=== PATIENT | male | born 1940 | race African-American/Black ===

== ENCOUNTER 2022-02-24 08:45 | Emergency (ER) | payer OTHER, MEDICARE ==
[2022-02-24] MEDS ORDERED: Acetaminophen 500 MG TAB ONE (09:46)
[2022-02-24 10:30] LABS: #Eosinphils 0.2 10x3/uL (0.0-0.5); #Monocytes 0.7 10x3/uL (0.0-1.1); #Neutrophils 4.5 10x3/uL (1.5-8.4); %Basophils 0.3 % (0.0-2.0); %Eosinophils 2.9 % (0.0-6.0); %Lymphocytes 25.3 % (18.0-47.0); %Monocytes 9.5 % (0.0-10.0); %Neutrophils 61.7 % (40.0-75.0); Hemoglobin 12.1 g/dL (13.5-17.5); Mean Corpuscular HGB CONC 32.4 g/dL (32.0-36.0); Mean Corpuscular Hemoglobin 32.1 pg (27.0-33.0); Mean Corpuscular Volume 99.2 fl (81.2-95.1); Mean Platelet Volume 11.3 fl (7.4-10.4); Platelet Count 60 10x3/uL (150-450); RBC Distribution Width 15.5 % (11.5-14.5); Red Blood Cell (RBC) Count 3.77 10x6/uL (4.32-5.72); White Blood Cell (WBC) Count 7.2 10x3/uL (3.5-10.5)
[2022-02-24 10:31] LABS: ALT (SGPT) 9 U/L (8-55); AST (SGOT) 14 U/L (5-34); Albumin 3.7 g/dL (3.4-4.8); Alkaline Phosphatase 59 U/L (40-110); Anion Gap 17 mmol/L (10-20); BUN (Urea Nitrogen) 36 mg/dL (8.4-25.7); Bilirubin, Total 0.4 mg/dL (0.2-1.2); Calc. Creatinine Clearance 0 mL/min (70-130); Calcium 8.2 mg/dL (7.8-10.44); Carbon Dioxide 21 mmol/L (23-31); Chloride 107 mmol/L (98-107); Estimated GFR 5; Globulin 2.9 g/dL (2.4-3.5); Glucose 78 mg/dL (83-110); Protein, Total 6.6 g/dL (5.8-8.1); Sodium 141 mmol/L (136-145)
== END 2022-02-24 12:06 | disposition home or self-care (01) ==
LOC: CSHERS 08:45
DX: S43.401A Unspecified sprain of right shoulder joint, initial encounter (principal); S80.01XA Contusion of right knee, initial encounter; E11.22 Type 2 diabetes mellitus with diabetic chronic kidney disease; I12.0 Hypertensive chronic kidney disease with stage 5 chronic kidney disease or end stage renal disease; N18.6 End stage renal disease; W01.0XXA Fall on same level from slipping, tripping and stumbling without subsequent striking against object, initial encounter
CPT/HCPCS: 36415; 70450; 72125; 72170; 80053; 85025; 93005

== ENCOUNTER 2022-09-10 07:43 | Emergency (ER) | payer MEDICARE, OTHER, MEDICAID ==
[2022-09-10] MEDS ORDERED: Ondansetron PF 4 MG/2 ML Vial ONE (07:53)
[2022-09-10 08:23] LABS: #Eosinphils 0.1 10x3/uL (0.0-0.5); #Monocytes 0.3 10x3/uL (0.0-1.1); #Neutrophils 4.2 10x3/uL (1.5-8.4); %Basophils 0.2 % (0.0-2.0); %Eosinophils 0.9 % (0.0-6.0); %Lymphocytes 17.2 % (18.0-47.0); %Monocytes 5.9 % (0.0-10.0); %Neutrophils 75.4 % (40.0-75.0); Hemoglobin 12.5 g/dL (13.5-17.5); Mean Corpuscular HGB CONC 32.4 g/dL (32.0-36.0); Mean Corpuscular Hemoglobin 32.7 pg (27.0-33.0); Mean Platelet Volume 10.9 fl (7.4-10.4); Platelet Count 56 10x3/uL (150-450); RBC Distribution Width 14.4 % (11.5-14.5); Red Blood Cell (RBC) Count 3.82 10x6/uL (4.32-5.72); White Blood Cell (WBC) Count 5.6 10x3/uL (3.5-10.5)
[2022-09-10 08:33] LABS: Phosphorus 4.5 mg/dL (2.3-4.7)
[2022-09-10 08:36] LABS: ALT (SGPT) 12 U/L (8-55); AST (SGOT) 23 U/L (5-34); Albumin 4.2 g/dL (3.4-4.8); Alkaline Phosphatase 54 U/L (40-110); Anion Gap 20 mmol/L (10-20); BUN (Urea Nitrogen) 39 mg/dL (8.4-25.7); Bilirubin, Total 0.3 mg/dL (0.2-1.2); Calc. Creatinine Clearance 0 mL/min (70-130); Calcium 8.3 mg/dL (7.8-10.44); Carbon Dioxide 23 mmol/L (23-31); Chloride 96 mmol/L (98-107); Estimated GFR 5; Glucose 212 mg/dL (83-110); Lipase 59 U/L (8-78); Magnesium 2.4 mg/dL (1.6-2.6); Potassium 4.2 mmol/L (3.5-5.1); Protein, Total 7.2 g/dL (5.8-8.1); Sodium 135 mmol/L (136-145)
[2022-09-10 09:04] LABS: SARS-CoV-2 NAA Rapid Test Not Detected (NotDetected)
[2022-09-10] MEDS ORDERED: Metoclopramide HCl 10 MG/2 ML VIAL ONE (09:31)
[2022-09-10] MEDS ORDERED: Lidocaine Viscous Sol 2% 15 ml UD Cup ONE (09:31)
[2022-09-10] MEDS ORDERED: Mag-Al Plus 1200 MG/1200 MG/120 MG/30 ML UDCUP ONE (09:31)
== END 2022-09-10 13:29 | disposition home or self-care (01) ==
LOC: CSHERS 07:43
DX: R11.2 Nausea with vomiting, unspecified (principal); I12.0 Hypertensive chronic kidney disease with stage 5 chronic kidney disease or end stage renal disease; N18.6 End stage renal disease; Z99.2 Dependence on renal dialysis; K21.9 Gastro-esophageal reflux disease without esophagitis; D64.9 Anemia, unspecified; Z87.891 Personal history of nicotine dependence; E11.40 Type 2 diabetes mellitus with diabetic neuropathy, unspecified; E11.22 Type 2 diabetes mellitus with diabetic chronic kidney disease; Z20.822 Contact with and (suspected) exposure to COVID-19
CPT/HCPCS: 0240U; 71045; 74176; 80053; 82553; 83605; 83690; 83735; 84100; 84484; 85025; 93005; 36415; 96374; 96375; J2405; J2765

== ENCOUNTER 2023-01-30 13:56 | Emergency (ER) | payer MEDICARE, MEDICAID ==
[2023-01-30 15:08] LABS: #Eosinphils 0.1 10x3/uL (0.0-0.5); #Monocytes 0.5 10x3/uL (0.0-1.1); %Basophils 0.4 % (0.0-2.0); %Eosinophils 2.2 % (0.0-6.0); %Lymphocytes 27.3 % (18.0-47.0); %Monocytes 9.9 % (0.0-10.0); %Neutrophils 59.8 % (40.0-75.0); Hematocrit 33.6 % (38.8-50.0); Hemoglobin 10.5 g/dL (13.5-17.5); Mean Corpuscular HGB CONC 31.3 g/dL (32.0-36.0); Mean Corpuscular Hemoglobin 32.4 pg (27.0-33.0); Mean Corpuscular Volume 103.7 fl (81.2-95.1); RBC Distribution Width 14.4 % (11.5-14.5); Red Blood Cell (RBC) Count 3.24 10x6/uL (4.32-5.72)
[2023-01-30 15:09] LABS: Mean Platelet Volume 10.4 fl (7.4-10.4); Platelet Count 99 10x3/uL (150-450)
[2023-01-30 15:17] LABS: CRP (Inflammatory) 3.17 mg/dL (= or < 0.5); Magnesium 2.1 mg/dL (1.6-2.6)
[2023-01-30 15:20] LABS: ALT (SGPT) 8 U/L (8-55); AST (SGOT) 12 U/L (5-34); Albumin 3.5 g/dL (3.4-4.8); Alkaline Phosphatase 62 U/L (40-110); Anion Gap 19 mmol/L (10-20); BUN (Urea Nitrogen) 23 mg/dL (8.4-25.7); Bilirubin, Total 0.4 mg/dL (0.2-1.2); Calc. Creatinine Clearance 0 mL/min (70-130); Calcium 8.3 mg/dL (7.8-10.44); Carbon Dioxide 24 mmol/L (23-31); Chloride 99 mmol/L (98-107); Estimated GFR 7; Globulin 3.4 g/dL (2.4-3.5); Glucose 114 mg/dL (83-110); Protein, Total 6.9 g/dL (5.8-8.1); Sodium 137 mmol/L (136-145)
[2023-01-30 15:32] LABS: Platelet Adequacy Comment Appears Decreased; Polychromasia SLIGHT = 2-3 cells (100X) (0-2/hpf)
[2023-01-30] MEDS ORDERED: Piperacillin/Tazobactam 4.5 GM VIAL ONE (19:35)
== END 2023-01-30 20:23 | disposition short-term general hospital (02) ==
LOC: CSHERS 13:56
DX: M86.172 Other acute osteomyelitis, left ankle and foot (principal); I13.2 Hypertensive heart and chronic kidney disease with heart failure and with stage 5 chronic kidney disease, or end stage renal disease; I50.9 Heart failure, unspecified; N18.6 End stage renal disease; E11.22 Type 2 diabetes mellitus with diabetic chronic kidney disease; Z87.891 Personal history of nicotine dependence
CPT/HCPCS: 80053; 83735; 85025; 86140; 93005; J2543